=== PATIENT | male | born 1965 | race Hispanic/Latino ===

== ENCOUNTER 2017-08-11 10:31 | Outpatient (CLI) | payer MEDICAID, SELFPAY ==
--- NOTE | 2017-08-11 13:00 | CT ---
CT OF THE BRAIN WITHOUT CONTRAST: Date: 08/11/17 COMPARISON: 06/27/17. HISTORY: Intracranial hemorrhage with prior stroke. TECHNIQUE: Multiple contiguous axial images were obtained in a CT of the brain without contrast. FINDINGS: There is an evolving hemorrhage in the left basal ganglia. This is not as dense as it was on the dilcia or examination. This is slightly decreased in size with less significant compression on the left lat eral ventricle and no significant midline shift is seen on today's examination. No extra-axial fluid collections or intraventricular hemorrhage is seen. There is no evidence of hydrocephalus. The calv arium and overlying soft tissues are unremarkable. The visualized paranasal sinuses and mastoid air cells are well aerated. IMPRESSION: Evolving left basal ganglia hemorrhage. POS: [facility]
== END 2017-08-11 10:32 | disposition home or self-care (01) ==
LOC: CT 10:31
PROVIDERS: ATTEND Neurological Surgery
DX: I62.9 Nontraumatic intracranial hemorrhage, unspecified (principal)
CPT/HCPCS: 70450

== ENCOUNTER 2017-08-12 10:15 | Outpatient (CLI) | payer MEDICAID, OTHER ==
--- NOTE | 2017-08-12 12:07 | RAD ---
PA AND LATERAL CHEST: History: Dyspnea. FINDINGS: Comparison made with exam of 07-21-17. The heart size is normal. The lungs are expanded without focal areas of consolidation, pneumothorax or pleural effusions. There are degenerative changes of the spine. IMPRESSION: No radiographic evidence of acute cardiopulmonary process. POS: [facility]
== END 2017-08-12 10:16 | disposition home or self-care (01) ==
LOC: RAD 10:15
PROVIDERS: ATTEND Internal Medicine Critical Care Medicine
DX: R06.00 Dyspnea, unspecified (principal)
CPT/HCPCS: 71020

== ENCOUNTER 2017-10-15 11:54 | Outpatient (CLI) | payer OTHER ==
--- NOTE | 2017-10-15 15:52 | CT ---
EXAM: NONCONTRAST HEAD CT 10/15/17 HISTORY: Followup CVA from June 26, 2017. COMPARISON: 08/11/17, 07/06/17. TECHNIQUE: Noncontrast head CT is performed from the skull base to skull vertex. FINDINGS: No parenchymal hemorrhage. No extra-axial hematoma. No midline shift. Basilar cisterns are patent. Th ere is expected malacic change in the left cerebrum, in the region of previously noted hemorrhage. Co rtical long-white matter differentiation is preserved. Ventricles and sulci are patent and symmetric. Stable hypodensity in the right frontal subcortical white matter. The calvarium is intact. Adequate aeration of the sinuses and mastoid air cells. 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 POS: [facility]
== END 2017-10-15 11:55 | disposition home or self-care (01) ==
LOC: CT 11:54
PROVIDERS: ATTEND Neurological Surgery
DX: I61.0 Nontraumatic intracerebral hemorrhage in hemisphere, subcortical (principal); I69.151 Hemiplegia and hemiparesis following nontraumatic intracerebral hemorrhage affecting right dominant side; G93.89 Other specified disorders of brain
CPT/HCPCS: 70450